=== PATIENT | male | born 1950 | race Caucasian/White ===

== ENCOUNTER 2017-05-12 15:55 | Inpatient (IN) | payer OTHER ==
[~2017-05-12] VITALS: Ht 188 cm; Wt 74.8 kg
--- NOTE | ~2017-05-12 | CR72 ---
[facility] A Service [facility] RADIOLOGY TEXT RESULTS PATIENT: SILVANA ALBERTO LOCATION: C2A - : 48 UNIT #: [id number] AGE: [address]: Jennifer Constantino MD SEX: M ORDER DR: [id number] [address] [address] [id number] MR#: [id number] Acc #: [id number] NAME: SILVANA ALBERTO : 1950 SEX: M STUDY DATE/TIME: 05/12/2017 18:40 UNIT: [facility] ROOM: [place] STUDY DESCRIPTION: CR Chest Single View Portable Attending Physician: Jennifer Constantino M.D. Ordering Physician: Jimmie Hernandez M.D. Primary Care Physician: Maricruz Barcenas M.D. MEDICAL IMAGING REPORT This report is preliminary unless electronic signature is present EXAM Portable chest x-ray HISTORY Weakness. Parkinson's. Mild congestion. Decreased level of consciousness, duration 2 days. TECHNIQUE AP radiograph of the chest. COMPARISON STUDIES 12/12/2016. FINDINGS Stable cardiac enlargement. Stable cardiac enlargement. Stable tortuosity descending thoracic aorta. The lungs are well inflated. There is no evidence of acute infectious or inflammatory disease, pleural effusion or pneumothorax. No suspicious nodule. No acute appearing bony abnormality. Visualized upper abdomen normal. Dictated by... Tung Flores M.D. THIS IS AN ELECTRONICALLY VERIFIED REPORT Tung Flores M.D. at 05/13/2017 9:25 PM HIGINIO/alee TD: 05/13/2017 15:26 JOB #: [id number] [facility] A Service [facility] RADIOLOGY TEXT RESULTS PATIENT: SILVANA ALBERTO LOCATION: C2A 217- : 48 UNIT #: [id number] AGE: [address]: Jennifer Constantino MD SEX: M ORDER DR: MEDICAL IMAGING REPORT Page 1 of 1 COPY
--- NOTE | ~2017-05-12 | CT71 ---
[facility] A Service of [facility] RADIOLOGY TEXT RESULTS PATIENT: SILVANA ALBERTO LOCATION: C2A 217-01 : [birth year] UNIT #: [id number] AGE: [address]: Jennifer Constantino MD SEX: M ORDER DR: [id number] [facility] [address]. [place], [place] [address] [id number] I MR#: [id number] Acc #: [id number] NAME: SILVANA ALBERTO : 1950 SEX: M STUDY DATE/TIME: 05/12/2017 17:26 UNIT: C2 ROOM: [facility] STUDY DESCRIPTION: CT Head Wo Contrast Attending Physician: Jennifer Constantino M.D. Ordering Physician: Jimmie Hernandez M.D. Primary Care Physician: Maricruz Barcenas M.D. MEDICAL IMAGING REPORT This report is preliminary unless electronic signature is present EXAM CT head 05/12/2017 HISTORY Weakness and immobility 2 days. History of Parkinson's disease. TECHNIQUE CT head performed skull base to vertex without intravenous contrast. This CT exam was performed with one or more of the following radiation dose reduction techniques: automatic exposure control, adjustment of mA and/or kV according to patient size, and iterative reconstruction. COMPARISON STUDIES 12/07/2015. FINDINGS The brainstem is unremarkable. Focal areas of encephalomalacic change in the right cerebellar hemisphere are new compared to 2016, favored to reflect interval, now chronic vascular insults. The largest of the areas of encephalomalacic change is in the mid-left cerebellar hemisphere posteromedially measuring about 1.9 cm x 1.6 cm. There is no clear indication of acute cerebellar abnormality. The cerebral hemispheres show normal gifford matter-white matter differentiation. No acute cortical ischemia. No hemorrhage. Extensive periventricular and deep white matter tract hypodensities bilaterally, likely reflecting sequela of chronic microvascular ischemia. There is a right-sided ventricular drain which extends to the right parietal lobe, crosses the midline, and terminates superimposed over the superior aspect of the left thalamus. The tip may be intraparenchymal. This is unchanged. The basal ganglia showed no acute appearing abnormality. The ventricles, cisterns and sulci show moderate generalized enlargement with ventricular predominance. No STS. [facility] A Service of [facility] RADIOLOGY TEXT RESULTS PATIENT: SILVANA ALBERTO LOCATION: C2A 217-01 : 46 UNIT #: [id number] AGE: [address]: Jennifer Constantino MD SEX: M ORDER DR: change. No intra- or extraaxial mass effect or abnormal intracranial fluid collection. Extensive cavernous carotid and distal vertebral arterial calcification. No acute bony abnormality. The visualized paranasal sinuses and mastoid air cells are clear. IMPRESSION 1. There is no clearly acute abnormality seen in the brain. 2. In the interval from December 2015, there are new areas of encephalomalacic change in the left cerebellar hemisphere. The largest of these measures 1.9 cm in maximum diameter. These are favored to reflect sequela of interval vascular insult. No acute cerebellar abnormality is seen. 3. Other chronic changes include: moderate generalized atrophy, generalized enlargement of ventricles, cisterns and sulci with ventricular predominance (stable), right transparietal ventricular drain crossing midline and terminating at superior aspect of left thalamus with tip potentially within thalamic parenchyma. No change. Extensive periventricular and deep white matter tract probable sequela of chronic microvascular ischemia. Extensive vascular calcifications. Dictated by... Tung Flores M.D. THIS IS AN ELECTRONICALLY VERIFIED REPORT Tung Flores M.D. at 05/13/2017 9:25 PM HIGINIO/alee TD: 05/13/2017 13:28 JOB #: [id number] MEDICAL IMAGING REPORT Page 1 of 1 COPY
--- NOTE | ~2017-05-12 | EKG ---
PATIENT: SILVANA ALBERTO UNIT #: [id number] Ventricular Rate: 72 BPM Atrial Rate: 72 BPM P-R Interval: 230 ms QRS Duration: 82 ms Q-T Interval: 428 ms QTC Calculation(Bezet): 468 ms P [place]: 90 degrees Calculated R [place]: 2 degrees Calculated T [place]: 60 degrees Diagnosis Line: Sinus rhythm with 1st degree A-V block Diagnosis Line: Inferior infarct , age undetermined Diagnosis Line: T wave abnormality, consider anterolateral Diagnosis Line: ischemia Diagnosis Line: Abnormal ECG Diagnosis Line: No previous ECGs available Diagnosis Line: Confirmed by TESSA TURK MD ([id number]) on 05/14/2017 Diagnosis Line: 11:01:17 PM INTERPRETING MD: BURKE BRUMFIELD
--- NOTE | ~2017-05-12 | DS ---
Unit #: [id number] #: [id number] Patient: SILVANA ALBERTO [id number] [address] [address] [id number] MR#: [id number] NAME: SILVANA ALBERTO ROOM: 217 Age: 66 Sex: M Admission Date: 05/12/2017 : 1950 Discharge Date: Attending Physician: Xander Warren M.D. Primary Care Physician: Maricruz Barcenas M.D. DISCHARGE SUMMARY PRIMARY DIAGNOSIS Physical debility with generalized weakness. SECONDARY DIAGNOSES 1. Parkinson disease. 2. Urinary tract infection with coagulation negative staphylococcus. 3. History of hydrocephalus with ventriculoperitoneal shunt. 4. Cervical dystonia. 5. Hearing loss. 6. Osteoarthritis. HOSPITAL COURSE Patient was admitted to the hospital with weakness and findings of UTI similar to a very recent hospitalization at [place] and discharged to subacute rehab last month. The patient was initially placed on IV Zosyn. Urine cultures came back with coagulase negative staphylococcus which was resistant to Bactrim, resistant to oxacillin, resistant to penicillin. It was sensitive to nitrofurantoin, tetracycline, and vancomycin. He was switched to nitrofurantoin for a seven-day course. At this time, I strongly suspect that the urinary tract infection represents an infection isolated to urine as the patient does not have any fever or leukocytosis or generalized symptoms. However, considering his history of SAL[employer]ANT INS[employer]ANCE shunt, I would recommend close monitoring of Mr. Alberto for early diagnosis of any infection of his [employer] shunt with coagulase negative staphylococcus. As such, I have ordered a weekly urinalysis and culture every Monday for the next three weeks and a weekly CBC every Monday for the next three weeks. If the patient develops any fever or leukocytosis or repeat urinary tract infections with coagulase negative staphylococcus, I would recommend the patient be admitted to [facility] where his neurosurgeon is present for possible evaluation for possible infected [employer] shunt. DISCHARGE DISPOSITION To subacute rehab. DISCHARGE STATUS Stable. DISCHARGE ACTIVITY With assistance only. DISCHARGE DIET Unrestricted. Unit #: [id number] #: [id number] Patient: SILVANA ALBERTO DISCHARGE FOLLOWUP With his PCP in two to six weeks and he is to get urinalysis, urine culture, and CBC every Monday for three weeks. DISCHARGE MEDICATIONS 1. Lasix 40 mg p.o. b.i.d. 2. Carbidopa/Levodopa 25/250 mg p.o. q.i.d. 3. Comtan 200 mg p.o. t.i.d. 4. Synthroid 112 mcg p.o. daily. 5. Macrobid 100 mg p.o. b.i.d. with the last dose to be on May 22, 2017. SPECIAL NOTE It is unclear to me based on the patient's history why he is on such a high dose Lasix at home. Consideration could be made for decreasing this dose if it is felt to be clinically appropriate. Dictated by... Xander Warren M.D. KRISHAN/jayce TD: 05/16/2017 08:58 JOB #: [id number] DISCHARGE SUMMARY Page 1 of 1 X Xander Warren MD X DISCHARGE SUMMARY
--- NOTE | ~2017-05-12 | HP ---
Unit #: [id number] #: [id number] Patient: SILVANA ALBERTO [id number] [address] [place], [place] [address] [id number] I MR#: [id number] NAME: SILVANA ALBERTO ROOM: 217 Age: 66 Sex: M Admission Date: 05/12/2017 : 1950 Attending Physician: Yolette Lam M.D. Primary Care Physician: Maricruz Barcenas M.D. HISTORY AND PHYSICAL CHIEF COMPLAINT Chief complaint is weakness. HISTORY OF PRESENT ILLNESS The patient is a 66-year-old male with a history of a cervical dystonia, hearing loss, hyperlipidemia, obstructive hydrocephalus with MEDICAL AND SCIENTIFIC ILLUSTRATOR shut and Parkinson disease, brought to the ER from home with a weakness. The patient was seen at the [facility] on April 04 and was discharged to the [facility] following the similar presentation. The patient was discharged to home from rehab yesterday and patient was unable to walk or care for himself and brought to the emergency room for the above reasons, denies any nausea and vomiting, denies any chills. The patient is being admitted for the weakness. PAST MEDICAL HISTORY History of a cervical dystonia, hearing loss, hyperlipidemia, obstructive hydrocephalus with a MEDICAL AND SCIENTIFIC ILLUSTRATOR shunt and osteoarthritis, Parkinson disease, vision abnormalities. PAST SURGICAL HISTORY Past surgical history includes cataract extraction and thyroidectomy. ALLERGIES Includes Percocet. HOME MEDICATION Patient is on carbidopa/levodopa, Lasix, Synthroid. FAMILY HISTORY Positive for diabetes in mother, migraines in the father. SOCIAL HISTORY No history of smoking, no history of tobacco, no history of alcohol and patient stated that he lives alone at home because his recently. REVIEW OF SYSTEMS Positive for weakness, positive for the inability to get up and take care of himself and all other systems have been reviewed and are negative except as mentioned in HPI. PHYSICAL EXAMINATION GENERAL APPEARANCE: On examination patient is lying in a bed not in acute distress. Unit #: [id number] #: [id number] Patient: SILVANA ALBERTO VITALS: Temperature 98.1, pulse 88, respiratory rate 18, blood pressure 127/72, sating 97% at room air. HEAD: Atraumatic/normocephalic. HEENT: Pupils equal, round and reactive to light and accommodation. Extraocular movements are intact. NECK: Supple. LUNGS: Decreased air entry at the bases. HEART: Regular rate and rhythm. ABDOMEN: Soft. Positive bowel sounds. EXTREMITIES: No cyanosis. No clubbing. NEURO: Awake and alert. DIAGNOSTIC STUDIES LAB DATA: Glucose is 123 and WBC 6.6, hemoglobin 12, hematocrit 35.3, platelet 274, troponin 0.05, sodium 140, potassium 3.7, chloride 105, bicarb 27, glucose 123, BUN 14, creatinine 0.8, AST 20, ALT 27, albumin 3.7 and UA shows 1+ leukocyte esterase and urine WBC 10 to 25. IMAGING: Patient had the CT of the head, was done at the [facility] on April 02, that shows chronic obstructive hydrocephalus unchanged, chronic white matter microangiopathy. No acute intracranial abnormality. Dictated by Dr. Curry and patient follows with [facility] for the Parkinson disease. ASSESSMENT AND PLAN 1. Weakness. 2. History or Parkinson disease. Plan to admit the patient to observation with a med/surg floor. Patient will have a OT/PT eval and continue with the Parkinson disease and repeat the labs again in the morning and further recommendations will follow. Dictated by Priya Castillo/alberto TD: 05/12/2017 20:40 JOB #: [id number] HISTORY AND PHYSICAL Page 1 of 1 X YOLETTE LAM MD X HISTORY AND PHYSICAL
[2017-05-12 17:06] LABS: BASOPHIL% 0.3 % (0-2.5); EOSINOPHIL# 0.1 X10e3 (0-0.7); EOSINOPHIL% 1.5 % (0.0-7.0); HEMATOCRIT 35.3 % (38.0-50.0); LYMPHOCYTE# 0.8 X10e3 (1.0-3.5); LYMPHOCYTE% 12.7 % (17.0-45.0); MEAN CELL VOLUME 91.5 FL (83-96); MEAN CORPUSCULAR HEMOGLOBIN 31.2 PG (28-34); MEAN PLATELET VOLUME 7.9 FL (6.5-11.5); MONOCYTE# 0.3 X10e3 (0-1.0); MONOCYTE% 4.9 % (3.0-12.0); NEUTROPHIL# 5.3 X10e3 (1.5-7.1); NEUTROPHIL% 80.6 % (40-75); PLATELET COUNT 274 X10e3 (140-420); RED BLOOD COUNT 3.86 X10e (3.90-5.60); RED CELL DISTRIBUTION WIDTH 13.9 % (11.0-15.5); WHITE BLOOD COUNT 6.6 X10e3 (4.0-10.5)
[2017-05-12 17:08] LABS: DIFF IND NO
[2017-05-12] MEDS ORDERED: CARBIDOPA-LEVO1 EAC6 PO (17:19)
[2017-05-12] MEDS ORDERED: SYNTHROID112 MCG PO (17:19)
[2017-05-12] MEDS ORDERED: COMTAN200 MG PO (17:19)
[2017-05-12] MEDS ORDERED: LASIX PO (17:19)
[2017-05-12] MEDS ORDERED: PATIENT'S PHARMACY (17:19)
[2017-05-12 17:42] LABS: POC - TROPONIN 0.05 ng/mL (<=0.05)
[2017-05-12 17:51] LABS: ALBUMIN SERUM 3.7 g/dL (3.5-5.0); BILIRUBIN, DIRECT 0.1 mg/dL (0.0-0.2); BILIRUBIN,INDIRECT 0.2 mg/dL (0.0-0.9); BILIRUBIN,TOTAL 0.3 mg/dL (0.2-2.0); BUN/CREATININE RATIO 17.5; CALCIUM SERUM 8.7 mg/dL (8.4-10.2); CREATININE SERUM 0.8 mg/dL (0.6-1.4); GLOM FILT RATE Estimated 91.8 mL/min (>60); POTASSIUM 3.7 mmol/L (3.5-5.1); PROTEIN TOTAL SERUM 6.6 g/dL (6.0-8.3)
[2017-05-12 18:13] LABS: URINE SOURCE CLEAN CATCH
[2017-05-12 18:17] LABS: URINE APPEARANCE CLEAR; URINE BILIRUBIN NEG (NEG); URINE BLOOD NEG (NEG); URINE COLOR YELLOW; URINE GLUCOSE NEG (NEG); URINE KETONE NEG (NEG); URINE LEUKOCYTE ESTERASE 1+ (NEG); URINE NITRATE NEG (NEG); URINE PH 7.5 (5-8); URINE PROTEIN NEG (NEG); URINE SPECIFIC GRAVITY 1.013 (1.003-1.035)
[2017-05-12 18:19] LABS: CULTURE INDICATED? YES; U HYALINE CASTS AUWI 0-2 /[LPF]; URBCS1 AUWI 0-2 /[HPF] (0-2); URINE BACTERIA AUWI NEG (NEGATIVE); URINE SQUAMOUS EPITHELIAL CELL OCC /[HPF]
[2017-05-13 06:24] LABS: BASOPHIL% 0.5 % (0-2.5); DIFF IND NO; EOSINOPHIL# 0.2 X10e3 (0-0.7); EOSINOPHIL% 3.4 % (0.0-7.0); HEMATOCRIT 31.6 % (38.0-50.0); HEMOGLOBIN 10.9 gm/dL (13.0-16.0); LYMPHOCYTE# 1.3 X10e3 (1.0-3.5); LYMPHOCYTE% 24.4 % (17.0-45.0); MEAN CORPUSCULAR HEMOGLOBIN 31.3 PG (28-34); MEAN CORPUSCULAR HGB CONC 34.4 g/dL (30-36); MEAN PLATELET VOLUME 8.1 FL (6.5-11.5); MONOCYTE# 0.3 X10e3 (0-1.0); MONOCYTE% 5.9 % (3.0-12.0); NEUTROPHIL# 3.4 X10e3 (1.5-7.1); NEUTROPHIL% 65.8 % (40-75); PLATELET COUNT 259 X10e3 (140-420); RED BLOOD COUNT 3.47 X10e (3.90-5.60); RED CELL DISTRIBUTION WIDTH 13.6 % (11.0-15.5); WHITE BLOOD COUNT 5.2 X10e3 (4.0-10.5)
[2017-05-13 06:56] LABS: CALCIUM SERUM 8.2 mg/dL (8.4-10.2); CREATININE SERUM 0.8 mg/dL (0.6-1.4); GLOM FILT RATE Estimated 91.8 mL/min (>60); POTASSIUM 3.4 mmol/L (3.5-5.1)
[2017-05-14 05:18] LABS: HEMATOCRIT 34.1 % (38.0-50.0); HEMOGLOBIN 11.7 gm/dL (13.0-16.0); MEAN CELL VOLUME 91.8 FL (83-96); MEAN CORPUSCULAR HEMOGLOBIN 31.6 PG (28-34); MEAN CORPUSCULAR HGB CONC 34.4 g/dL (30-36); MEAN PLATELET VOLUME 8.2 FL (6.5-11.5); RED BLOOD COUNT 3.71 X10e (3.90-5.60)
[2017-05-14 06:24] LABS: BUN/CREATININE RATIO 15.71; CALCIUM SERUM 8.8 mg/dL (8.4-10.2); CREATININE SERUM 0.7 mg/dL (0.6-1.4); MAGNESIUM 1.9 mg/dL (1.6-3.0); POTASSIUM 4.6 mmol/L (3.5-5.1)
== END 2017-05-16 20:40 | DRG 690 ==
LOC: CED 15:55 → C2A 19:00 → CED 20:17 → C2A 20:20
PROVIDERS: Emergency Medicine; Family Medicine; Internal Medicine
DX: N39.0 Urinary tract infection, site not specified (principal); G20 Parkinson's disease; B95.7 Other staphylococcus as the cause of diseases classified elsewhere; Z16.24 Resistance to multiple antibiotics; G24.9 Dystonia, unspecified; H91.90 Unspecified hearing loss, unspecified ear; M19.90 Unspecified osteoarthritis, unspecified site; E78.5 Hyperlipidemia, unspecified; Z98.2 Presence of cerebrospinal fluid drainage device; Z98.49 Cataract extraction status, unspecified eye; Z88.5 Allergy status to narcotic agent; Z83.3 Family history of diabetes mellitus
CPT/HCPCS: 36415; 51702; 70450; 71010; 80048; 80076; 81003; 82553; 82947; 83735; 84484; 85025; 85027; 87086; 87088; 87186; 93005; 94760; 96360; 97163; 97167; 97530; 97535; 99285; G8978-GP; G8979-GP; G8987-GO; G8988-GO; J1650; J2543